=== PATIENT | female | born 1995 | race Caucasian/White ===

== ENCOUNTER 2019-02-22 08:10 | Day surgery (SDC) | payer OTHER ==
[~2019-02-22] VITALS: Ht 154.9 cm; Wt 54.1 kg
[2019-02-22 08:56] VITALS: Ht 154.9 cm; Wt 54.1 kg
[2019-02-22] MEDS ORDERED: NO ACTIVE MEDS (09:00)
[2019-02-22 10:56] VITALS: BP 111/73; PULSE 70; RESP 20
[2019-02-22] MEDS ORDERED: MIDAZOLAM 1 MG/ML 2 ML INJ ONE ×2 (12:24)
[2019-02-22] MEDS ORDERED: FENTAnyl 50 MCG/ML VIAL ONE (12:24)
[2019-02-22 12:51] VITALS: BP 93/52; PULSE 54
== END 2019-02-22 13:59 | disposition home or self-care (01) ==
LOC: GIL 08:10
PROVIDERS: ATTEND Internal Medicine Gastroenterology
DX: K92.1 Melena (principal); K64.8 Other hemorrhoids
CPT/HCPCS: 45378; 84703; J2250; J3010; Z7610